=== PATIENT | female | born 1945 | race Caucasian/White ===

== ENCOUNTER 2018-08-09 03:02 | Inpatient (IN) | payer SELFPAY ==
[2018-08-09 04:34] LABS: CKMB 37.2 ng/mL (0-6.6)
--- NOTE | 2018-08-09 05:15 | HP ---
INDICATION FOR ADMISSION: A 72-year-old female with acute ST-segment elevation myocardial infarction with ST-segment changes anteriorly. HISTORY OF PRESENT ILLNESS: This is a very pleasant 72-year-old female with no previous past medical history, no history of coronary artery disease, was out walking her dog yesterday and she had chest discomfort since that time. She has never been completely pain free. She was seen in the emergency room in [place] and she was transferred to our facility here. Her first set of enzymes were negative. Her cardiac enzymes continued to trend upwards and she continues to have chest pain 3/[address]-segment changes, which come and go in the anterior leads. Her troponin I is now 1.2, originally was less than 0.1. She has not seen an MD in several years, but she denies any past history of hypertension, hypercholesterolemia, diabetes or tobacco abuse, or strong family history of early coronary artery disease. Her mother did have bypass surgery in her 60s. At this time, she also says yesterday she became nauseated, had some mild diarrhea with chest discomfort. The pain has been radiating down the left arm. At this time, she still continues to have some chest pain 2 to 3 over 10. PAST MEDICAL HISTORY: Unremarkable for any significant operations or illnesses. SOCIAL HISTORY: She is . She has 3 children. No heart disease. She has no alcohol or tobacco abuse. She is retired. ALLERGIES: NONE. PRESENT MEDICATIONS: None. REVIEW OF SYSTEMS: A 12-point review of systems is unremarkable except for some decreased hearing and what is noted in history of present illness. PHYSICAL EXAMINATION: GENERAL: Reveals a well-developed, well-nourished, very pleasant female. VITAL SIGNS: Blood pressure 129/59, heart rate is 72 and regular. HEENT: Normocephalic and atraumatic. Carotid pulses are present. There were no bruits. CHEST: Clear to auscultation without rales, rhonchi, or wheezing. CARDIOVASCULAR: Reveals a regular rate and rhythm. Normal S1, S2. There is no S3 or S4. There were no significant murmurs, heaves, thrills, bruits, or rubs. ABDOMEN: Soft and nontender. Positive bowel sounds are present. EXTREMITIES: Showed no clubbing, cyanosis, or edema. NEUROLOGIC: She appears to be fully intact. There are no gross focal motor deficits noted. SKIN: Warm and dry. PSYCHOSOCIAL: She appears to be normal without any evidence of significant depression, or other abnormalities. DIAGNOSTIC DATA: EKG shows a normal sinus rhythm with decreased R-wave progression in V1 and V2. One EKG shows an incomplete left bundle branch block, which is not present always. LABORATORY DATA: Otherwise shows an MB of 37.2, troponin I 1.2, hemoglobin 13.1, platelet count of 256,000. Potassium is 3.4. Her BUN and creatinine are 13 and 0.87. IMPRESSION: Probable acute anterior myocardial infarction. The patient will be taken emergently to the cardiac crime lab analyst for evaluation of coronary artery status. I have explained to her the procedure and the risks as well as her daughter to include bleeding, infection, possible myocardial infarction, CVA, renal insufficiency, allergic contrast reaction, and the possibility of . She understands and agrees to proceed. We will plan for emergent cardiac catheterization. Job ID: [id number]
[2018-08-09] MEDS ORDERED: Heparin 10,000 UNITS/1 ML VIAL ONE (05:42)
[2018-08-09] MEDS ORDERED: Lidocaine 1% (PF) 30 ML VIAL ONE (05:42)
[2018-08-09] MEDS ORDERED: Verapamil 5 MG/2 ML VIAL ONE (05:42)
[2018-08-09] MEDS ORDERED: Midazolam HCl 2 mg/2 ml Vial ONE (05:42)
[2018-08-09] MEDS ORDERED: Nitroglycerin 100MG/250ML BOT 250 ML ONE (05:42)
[2018-08-09] MEDS ORDERED: Nitroglycerin 0.4 MG TAB (25 Tab Bottle) SL PRN (05:54)
[2018-08-09] MEDS ORDERED: Heparin 25,000 units/D5W 500 ML IVPB SCH (06:00)
[2018-08-09] MEDS ORDERED: Heparin 10,000 UNITS/ 10 ML VIAL SLOW IVP SCH (06:00)
[2018-08-09] MEDS ORDERED: Morphine 2 MG/ML SYRINGE SLOW IVP PRN ×2 (06:22→06:30)
[2018-08-09 06:24] LABS: Hemoglobin 12.1 g/dL (12.0-16.0); Platelet Count 227 thou/uL (130-400)
[2018-08-09] MEDS ORDERED: Morphine 4 MG/ML VIAL SLOW IVP PRN (06:24)
[2018-08-09 07:05] LABS: PTT Greater than 250.0 SEC (22.9-36.1)
[2018-08-09 07:28] VITALS: BMI 27.2
[2018-08-09] MEDS ORDERED: Carvedilol 3.125 MG TAB PO SCH ×2 (08:00→17:00)
[2018-08-09] MEDS ORDERED: Lisinopril 2.5 MG TAB PO SCH (09:00)
[2018-08-09] MEDS ORDERED: Aspirin 325 mg Enteric Coated Tablet PO SCH (09:00)
[2018-08-09] MEDS: Heparin 5,000 UNITS/ML VIAL SC SCH ×3 (09:02→20:54)
[2018-08-09] MEDS ORDERED: Iopamidol 370 76% 100 ML VIAL ONE (09:06)
[2018-08-09] MEDS ORDERED: Iopamidol 370 76% 50 ML VIAL FS ONE (09:06)
[2018-08-09 09:31] LABS: PTT 127.2 SEC (22.9-36.1)
[2018-08-09] MEDS: Sodium Chloride 0.9% 1,000 ML IV SCH ×2 (09:56→16:09)
--- NOTE | 2018-08-09 10:19 | CON ---
DATE OF CONSULTATION: 08/09/2018 HISTORY OF PRESENT ILLNESS: Ms. Ortiz is a 72-year-old woman, who presented to the emergency department yesterday with chest pain that began at around 2 o'clock in the afternoon. She presented the lead nuclear medicine technologist hours to [facility] via referral from outside emergency department. On arrival, she was having continued chest pain. Her troponin was 1.2. She was taken to the catheterization lab and found to have a chronically occluded LAD with a calcified approximately 70% lesion proximal to this. The intervening segment has a couple of septal perforators and a diagonal branch. On her ventriculogram, the anterior apical wall is hypokinetic. Dr. Rangel attempted to cross the chronic occlusion of the distal LAD and was unable to get a wire to engage the distal LAD. The distal LAD is never seen on any of the injections of her coronaries. Otherwise, her coronaries are clean. 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 She states that she has been able to cure her from cancer and also restore her kidney function to normal with a "third kidney transplant". She does not take any medication at home and in our discussions was reluctant to commit to long-term medical regimen. PAST MEDICAL HISTORY: None. PAST SURGICAL HISTORY: None. CURRENT MEDICATIONS: None. ALLERGIES: NONE. SOCIAL HISTORY: She does not use tobacco or alcohol. She is . REVIEW OF SYSTEMS: Ten-point review of systems is performed and is negative except as above. PHYSICAL EXAMINATION: GENERAL: This is a well-developed, well-nourished woman, sleeping when I walked in the room. On questioning, she is chest pain free. VITAL SIGNS: Her height is 5 feet 5 inches. Her weight is 163 pounds. Her pulse is 68 with a blood pressure of 136/55, oxygen saturations are 100% on 2 L nasal cannula. HEENT: Sclerae are nonicteric. Pupils are equal and round bilaterally. NECK: Supple without bruit. There is no adenopathy. CHEST: Clear bilaterally. HEART: Rhythm is regular. ABDOMEN: Soft and nontender. EXTREMITIES: There is no edema. VASCULAR: She has palpable carotid, radial, femoral, and dorsalis pedis pulses bilaterally. ASSESSMENT AND PLAN: This is a difficult situation. I have discussed her findings with Dr. Rangel in detail. It is hard for me to commit to coronary artery bypass for a diagonal branch. We certainly can bypass her diagonal, but I do not see how this is going to help her anterior apical left ventricular wall function. I would say that medical management would probably be her best management strategy, but I am concerned that her reluctance to commit to any sort of medical management is going to limit our options there also. At this point, I would not recommend coronary artery bypass grafting in this setting. Job ID: [id number]
[2018-08-09] MEDS ORDERED: Ondansetron PF 4 MG/2 ML Vial IVP PRN (11:19)
[2018-08-09 12:01] LABS: Troponin I 16.496 ng/mL (< 0.028)
[2018-08-09] MEDS ORDERED: Sodium Chloride 0.9% 15 ML NEB ONE ×2 (12:25→12:26)
[2018-08-09] MEDS ORDERED: cloNIDine 0.1 MG TAB PO PRN (15:19)
[2018-08-09] MEDS ORDERED: Clopidogrel Bisulfate 300 MG TAB PO SCH (15:30)
[2018-08-09] MEDS ORDERED: Lisinopril 10 MG TAB PO SCH (15:30)
[2018-08-09 15:51] VITALS: BP 170/99
--- NOTE | 2018-08-09 20:33 | CON ---
DATE OF CONSULTATION: 08/09/2018 HISTORY OF PRESENT ILLNESS: Diana Stoner is a pleasant 72-year-old female with no history of heart problems. She started having chest pain yesterday afternoon and subsequently ended up in this hospital and went to cardiac catheterization via her radial artery. She has a chronically occluded LAD. Dr. Max documents the findings in the clinical lab clerk. She is pain free when I saw her in no distress. PAST MEDICAL HISTORY: Unremarkable. SOCIAL HISTORY: She is nonsmoker and nondrinker. She is . Her is in the room. FAMILY HISTORY: Negative for lung disease in early age. REVIEW OF SYSTEMS: 10 point review of systems completed, otherwise completely negative. PHYSICAL EXAMINATION: GENERAL: She is in no distress. Pleasant, cooperative. VITAL SIGNS: Heart rate in the 60s, blood pressure 145/76, and respiratory rate in the teens. HEENT: Pupils are equal. Sclerae are anicteric. Extraocular movements are full. Throat is clear. NECK: Supple. LUNGS: Clear. HEART: Regular rhythm. S1 and S2 are normal. I do not hear gallop. ABDOMEN: Soft and nontender. EXTREMITIES: Without clubbing, cyanosis, or edema. NEUROLOGIC: Grossly nonfocal. LABORATORY DATA: Hemoglobin 12.1, platelets 227,000 today. PTT 71 this afternoon. Troponin peaked at 18 this afternoon. IMPRESSION: 1. Myocardial infarction. 2. Coronary artery disease. At this point in time, she appears to be clinically stable. Medical management versus surgical management is the point on the decision tree where we are at. From a Pulmonary standpoint, she is doing well with no clinical evidence of congestive heart failure decompensation. TIME SPENT: This is a 70-minute consult, with greater than 50% of the time spent on the unit coordinating care. Job ID: [id number] [facility]
[2018-08-09] MEDS ORDERED: Atorvastatin Calcium 40 MG TAB PO SCH (21:00)
[2018-08-10] MEDS: Sodium Chloride 0.9% 1,000 ML IV SCH ×2 (02:33→06:50)
[2018-08-10 04:20] LABS: #Lymphocytes 1.6 thou/uL (1.20-3.40); #Monocytes 1.1 thou/uL (0.11-0.59); #Neutrophils 11.2 thou/uL (1.40-6.50); %Basophils 0.2 % (0.0-1.0); %Eosinophils 0.2 % (0.0-10.0); %Lymphocytes 11.2 % (21.0-51.0); %Monocytes 8.1 % (0.0-10.0); %Neutrophils 80.3 % (42.0-75.0); Hemoglobin 13.5 g/dL (12.0-16.0); Mean Corpuscular HGB CONC 33.3 g/dL (32.0-36.0); Mean Corpuscular Volume 93.3 fL (78.0-98.0); Mean Platelet Volume 8.1 fL (7.4-10.4); Platelet Count 252 thou/uL (130-400); RBC Distribution Width 12.3 % (11.5-14.5); Red Blood Cell (RBC) Count 4.35 mill/uL (4.20-5.40)
[2018-08-10 04:39] LABS: ALT (SGPT) 29 U/L (8-55); AST (SGOT) 133 U/L (5-34); Albumin 3.7 g/dL (3.4-4.8); Alkaline Phosphatase 75 U/L (40-150); Anion Gap 11 mmol/L (10-20); BUN (Urea Nitrogen) 6 mg/dL (9.8-20.1); Bilirubin, Total 0.8 mg/dL (0.2-1.2); Calc. Creatinine Clearance 84 mL/min (70-130); Calcium 8.9 mg/dL (7.8-10.44); Carbon Dioxide 24 mmol/L (23-31); Cardiac Risk 5.3 (Less than 4.5); Chloride 100 mmol/L (98-107); Cholesterol 282 mg/dl (< 200 Desired); Estimated GFR-MDRD 79; Globulin 2.8 g/dL (2.4-3.5); Glucose 156 mg/dL (80-115); HDL Cholesterol 53 mg/dL (>60 Neg Risk); LDL Cholesterol, Calculated 193 mg/dL; Potassium 3.6 mmol/L (3.5-5.1); Protein, Total 6.5 g/dL (6.0-8.3); Sodium 131 mmol/L (136-145); Triglycerides 181 mg/dL (Less than 150)
[2018-08-10 06:45] VITALS: TEMP 98.5
[2018-08-10] MEDS ORDERED: EPINEPHrine 1 MG/ML AMP ONE (08:10)
[2018-08-10] MEDS ORDERED: EPINEPHrine 1 MG/10 ML Abboject SYRINGE ONE ×2 (08:11→11:46)
--- NOTE | 2018-08-10 08:27 | PDOC.EVN ---
Event Note - Event Note Event Note: Meme cortes called, I was first doctor to the scene. Chest compressions had been started and had been bagging the pt. Epi had just been given prior to my arrival. Pt was shortly intubated during chest compressions by Dr. Lazo, breath sounds heard on both sides with positive capnography. Pulse check was performed every 2 minutes with PEA at each pulse check. Epinephrine was given every 3 minutes for a total of 7 doses. Per nurse pt had come in with SC and had been on heparin just prior to coding. This was stopped before starting chest compressions. Dr. Kinsey and Dr. Pino were present at [facility] and volunteered that pt had significant CAD and had prior cath showing LAD lesion but pt had previously refused surgery. Pulses were never recovered. Time of 0816 on 08/10/2018.
[2018-08-10] MEDS ORDERED: Clopidogrel Bisulfate 75 MG TAB PO SCH (09:00)
[2018-08-10] MEDS ORDERED: Prevnar 13-Val Conj/PF 0.5 ML SYRINGE IM ONE (09:00)
[2018-08-10] MEDS ORDERED: Lisinopril 10 MG TAB PO SCH (09:00)
[2018-08-10] MEDS ORDERED: Lisinopril 2.5 MG TAB PO SCH (09:00)
--- NOTE | 2018-08-11 01:07 | EKG ---
Test Reason : Blood Pressure : / mmHG Vent. Rate : 063 BPM Atrial Rate : 063 BPM P-R Int : 156 ms QRS Dur : 084 ms QT Int : 408 ms P-R-T Axes : 043 058 073 degrees QTc Int : 417 ms Normal sinus rhythm Cannot rule out Anterior infarct , age undetermined Abnormal ECG Confirmed by CORTNEY KNIG ([id number]), video effects editor LOREE SABA ([id number]) on 08/11/2018 1:06:57 AM Referred By: Confirmed By:CORTNEY KING
--- NOTE | 2018-08-12 09:04 | DIS ---
DATE OF ADMISSION: 08/08/2018 DATE OF DISCHARGE: 08/10/2018 SUMMARY: HISTORY OF PRESENT ILLNESS: The patient was a 72-year-old woman, who presented to the emergency room with acute onset of chest pain. She was found to have ST elevation in the anterior leads. The patient was taken emergently to the cardiac catheterization laboratory. HOSPITAL COURSE: On 08/09/2018, the patient underwent a left heart catheterization and was found to have normal left ventricular ejection fraction of 60%. The LAD had a 100% distal lesion and a 75% mid lesion. The patient underwent attempted PTCA, but it was not possible to open the vessel. The patient underwent an evaluation by Cardiothoracic Surgery. The patient was in the ICU, and this morning, she suddenly lost consciousness. The patient wnt into cardiac arrest. CPR was initiated immediately. The patient underwent unsuccessful resuscitation. The patient was pronounced at 7:53 a.m. Job ID: [id number] [facility]
== END 2018-08-10 12:43 | disposition expired ==
LOC: ERS 03:02 → CCU 04:40 → CCL 04:40 → CCU 05:45
PROVIDERS: ADMIT Internal Medicine Cardiovascular Disease; ATTEND Internal Medicine Cardiovascular Disease
PROC: 4A023N7 Measurement of Cardiac Sampling and Pressure, Left Heart, Percutaneous Approach (ICD-10-PCS; principal; 2018-08-09)
PROC: 5A12012 Performance of Cardiac Output, Single, Manual (ICD-10-PCS; 2018-08-10)
DX: I21.3 ST elevation (STEMI) myocardial infarction of unspecified site (principal); I25.10 Atherosclerotic heart disease of native coronary artery without angina pectoris
CPT/HCPCS: 36415; 80053; 80061; 82553; 84484; 85014; 85018; 85025; 85049; 85347; 85730; 92950; 93005; 93010; 93458; 96365; A4218; C1769; C1887; J0171; J1644; J2001; J2250; J2405; Q9967